=== PATIENT | female | born 1950 | race Caucasian/White ===

== ENCOUNTER 2017-07-03 12:05 | Outpatient (CLI) | END 2017-07-03 12:06 | disposition home or self-care (01) | LOC: AMBL 12:05 | PROVIDERS: ATTEND Family Medicine | DX: M25.512 Pain in left shoulder (principal); W19.XXXA Unspecified fall, initial encounter ==

== ENCOUNTER 2017-11-03 08:47 | Outpatient (CLI) ==
[2017-11-03] MEDS ORDERED: PROLIA SUBCUT STA (09:00)
[2017-11-03 09:11] VITALS: BP 141/74; TEMP 97.8
== END 2017-11-03 09:26 | disposition home or self-care (01) ==
LOC: OPMED 08:47
PROVIDERS: ATTEND Family Medicine
DX: M85.80 Other specified disorders of bone density and structure, unspecified site (principal)
CPT/HCPCS: 96372

== ENCOUNTER 2018-06-01 10:51 | Outpatient (CLI) ==
--- NOTE | 2018-06-01 11:59 | DI ---
EXAM: Three views of the right foot. History: Right foot pain. Findings: No acute fracture or dislocation. Small plantar spur. Mild diffuse subcutaneous edema. Mild to moderate degenerative changes of the midfoot with prominent dorsal osteophytes. Impression: No acute osseous abnormality. 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
--- NOTE | 2018-06-01 11:59 | DI ---
EXAM: Three views of the right ankle. History: Right ankle pain. Comparison: Right foot radiograph 06/01/2018 Findings: No acute fracture or dislocation. Small plantar spur. Mild subcutaneous edema at the ank le. Degenerative changes of the midfoot with dorsal osteophytes. Impression: No acute osseous abnormality.
== END 2018-06-01 10:52 | disposition home or self-care (01) ==
LOC: RAD 10:51
PROVIDERS: ATTEND Family Medicine
DX: M25.571 Pain in right ankle and joints of right foot (principal); M79.671 Pain in right foot

== ENCOUNTER 2018-06-12 12:52 | Outpatient (CLI) ==
[2018-06-12] MEDS ORDERED: PROLIA SUBCUT STA (13:00)
[2018-06-12 13:05] VITALS: BP 124/75; TEMP 97.7
== END 2018-06-12 12:53 | disposition home or self-care (01) ==
LOC: OPMED 12:52
PROVIDERS: ATTEND Family Medicine
DX: M85.80 Other specified disorders of bone density and structure, unspecified site (principal)
CPT/HCPCS: 96372

== ENCOUNTER 2018-12-07 06:51 | Outpatient (CLI) ==
[2018-12-07] MEDS ORDERED: PROLIA SUBCUT STA (07:13)
[2018-12-07 07:16] VITALS: BP 143/76; TEMP 98
== END 2018-12-07 06:52 | disposition home or self-care (01) ==
LOC: OPMED 06:51
PROVIDERS: ATTEND Family Medicine
DX: M81.0 Age-related osteoporosis without current pathological fracture (principal)
CPT/HCPCS: 96372

== ENCOUNTER 2019-07-23 13:05 | Outpatient (CLI) ==
[2019-07-23 13:22] VITALS: BP 130/77; TEMP 97.6
[2019-07-23] MEDS: PROLIA SUBCUT STA (13:23)
== END 2019-07-23 13:06 | disposition home or self-care (01) ==
LOC: OPMED 13:05
PROVIDERS: ATTEND Family Medicine
DX: M81.0 Age-related osteoporosis without current pathological fracture (principal)
CPT/HCPCS: 96372